=== PATIENT | female | born 1990 | race Hispanic/Latino ===

== ENCOUNTER 2018-03-13 10:08 | Emergency (ER) | payer OTHER ==
[2018-03-13 10:30] VITALS: O2SAT 100; BMI 24.2
[2018-03-13] MEDS ORDERED: Sodium Chloride 0.9% 1,000 ML IV STA (11:11)
--- NOTE | 2018-03-13 11:13 | ED PDOC ---
Arrival/HPI - General Chief Complaint: GI Problem Time Seen by Provider: 03/13/18 10:54 Historian: Patient - History of Present Illness Narrative History of Present Illness (Text): 03/13/18 11:08 27 year old female, whose past medical history includes multiple sclerosis, who presents to the ED complaining of general weakness and lightheadedness x 1 week. Patient notes associated frequent urination, nausea and vomiting x couple days. Patient states she was on a high dose steroid treatment for multiple sclerosis that she finished 1 week ago. She denies any vision issues, one sided weakness, parathesias or any neurological symptoms. She notes that she feels like she has cold like symptoms. No neck stiffness or headache. No fever. Patient states symptoms feels different than previous multiple sclerosis attacks. Patient denies any fever, chills, sob, diarrhea, cough, abdominal pain , back pain, or neck pain. LMP was 1 week prior, normal 03/13/18 14:46 Time/Duration: 1 week Symptom Onset: Gradual Symptom Course: Unchanged Activities at Onset: Light Context: Home Past Medical History - Provider Review Nursing Documentation Reviewed: Yes - Travel History Have you recently traveled outside [place] w/in the past 3 mons?: No - Patient History Narrative Patient History: MS - Infectious Disease Hx of Infectious Diseases: None - Reproductive Menopause: No - Cardiac Hx Cardiac Disorders: No - Pulmonary Hx Respiratory Disorders: No - Neurological Hx Multiple Sclerosis: Yes - HEENT Hx HEENT Disorder: No - Renal Hx Renal Disorder: No - Hematological/Oncological Hx Blood Disorders: No - Integumentary Hx Dermatological Disorder: No - Musculoskeletal/Rheumatological Hx Musculoskeletal Disorders: No - Psychiatric Hx Depression: No Hx Emotional Abuse: No Hx Physical Abuse: No Hx Substance Use: No - Anesthesia Hx Anesthesia: No - Suicidal Assessment Feels Threatened In Home Enviroment: No Family/Social History - Physician Review Nursing Documentation Reviewed: Yes Family/Social History: No Known Family HX Smoking Status: Current Some Days Smoker Hx Alcohol Use: No Hx Substance Use: No Hx Substance Use Treatment: No Allergies/Home Meds Allergies/Adverse Reactions: Allergies Sulfa (Sulfonamide Antibiotics) Allergy (Verified 03/13/18 11:10) RASH Home Medications: Home Meds Medication Instructions Recorded Confirmed Interferon Beta-1A/Albumin [Rebif 0 ml SQ 03/13/18 Titration Pack] Review of Systems - Physician Review All systems were reviewed & negative as marked: Yes - Review of Systems Constitutional: Fatigue Eyes: Normal ENT: Normal Respiratory: Normal. absent: SOB, Cough Cardiovascular: Normal. absent: Chest Pain Gastrointestinal: Nausea, Vomiting. absent: Abdominal Pain, Diarrhea Genitourinary Female: Frequency. absent: Dysuria, Vaginal Bleeding, Vaginal Discharge Musculoskeletal: Normal. absent: Back Pain, Neck Pain Skin: Normal. absent: Rash Neurological: Other (lightheaded). absent: Headache Endocrine: Normal Hemo/Lymphatic: Normal Psychiatric: Normal Physical Exam Vital Signs Reviewed: Yes Vital Signs Temp Pulse Resp BP Pulse Ox 03/13/18 12:59 97.5 F L 03/13/18 12:55 63 17 120/76 100 03/13/18 10:30 98.1 F 64 18 137/90 100 03/13/18 10:27 97.8 F 78 18 137/90 99 Temperature: Afebrile Blood Pressure: Normal Pulse: Regular Respiratory Rate: Normal Appearance: Positive for: Well-Appearing, Non-Toxic, Comfortable Pain Distress: None Mental Status: Positive for: Alert and Oriented X 3 - Systems Exam Head: Present: Atraumatic, Normocephalic Pupils: Present: PERRL Extroacular Muscles: Present: EOMI Conjunctiva: Present: Normal Mouth: Present: Moist Mucous Membranes Neck: Present: Normal Range of Motion Respiratory/Chest: Present: Clear to Auscultation, Good Air Exchange. No: Respiratory Distress, Accessory Muscle Use Cardiovascular: Present: Regular Rate and Rhythm, Normal S1, S2. No: Murmurs Abdomen: No: Tenderness, Distention, Peritoneal Signs Back: Present: Normal Inspection Upper Extremity: Present: Normal Inspection. No: Cyanosis, Edema Lower Extremity: Present: Normal Inspection. No: Edema Neurological: Present: GCS=15, CN II-XII Intact, Speech Normal, Motor Func Grossly Intact, Normal Sensory Function, Normal Cerebellar Funct, Gait Normal, Normal 2Pt Descrimination Skin: Present: Warm, Dry, Normal Color. No: Rashes Psychiatric: Present: Alert, Oriented x 3, Normal Insight, Normal Concentration Medical Decision Making ED Course and Treatment: 03/13/18 11:15 Impression: 27 year old female presents to the ED complaining of general weakness and lightheadedness x 1 week. Plan: -- Labs -- Reglan -- Sodium Chloride -- UA Progress Notes: 03/13/18 12:06 Upon reevaluation, pt is feeling better. States symptoms are unlike previous MS flares. Normal repeat neurology exam. No nausea and vomiting. Pt will be reevauated after full liter is finished. Labs reviewed, pt is dehydrated. Rest of labs unremarkable. 03/13/18 12:[address] Briones, states pt was on steroids. States symptoms most likely not MS related. Pt reevaluated. Neuro exam remains stable, pt notes improvement of symptoms. - Lab Interpretations Lab Results: 03/13/18 11:25 03/13/18 11:25 Lab Results 03/13/18 11:25: TSH 3rd Generation 1.73 03/13/18 11:25: Sodium 136, Potassium 3.6, Chloride 102, Carbon Dioxide 28, Anion Gap 11, BUN 11, Creatinine 0.5 L, Est GFR ( Amer) > 60, Est GFR ( Non-Af Amer) > 60, Random Glucose 93, Calcium 8.4, Magnesium 2.2, Total Bilirubin 0.2, AST 18, ALT 18, Alkaline Phosphatase 55, Total Protein 6.3, Albumin 3.4, Globulin 2.8, Albumin/Globulin Ratio 1.2, Lipase 72 03/13/18 11:25: Urine Color Yellow, Urine Appearance Clear, Urine pH 7.5, Ur Specific [place] 1.015, Urine Protein Negative, Urine Glucose (UA) Negative, Urine Ketones Negative, Urine Blood Negative, Urine Nitrate Negative, Urine Bilirubin Negative, Urine Urobilinogen 0.2, Ur Leukocyte Esterase Negative 03/13/18 11:25: WBC 10.4, RBC 4.26, Hgb 12.2, Hct 35.7 L, MCV 83.8, MCH 28.6, MCHC 34.2, RDW 12.3, Plt Count 230, MPV 10.3, Gran % 62.6, Lymph % (Auto) 30.5, [place] % (Auto) 5.6, Eos % (Auto) 1.2 L, Baso % (Auto) 0.1, Gran # 6.51 H, Lymph # (Auto) 3.2, [place] # (Auto) 0.6, Eos # (Auto) 0.1, Baso # (Auto) 0.01 - Medication Orders Current Medication Orders: Discontinued Medications Sodium Chloride (Sodium Chloride 0.9%) 1,000 mls @ 999 mls/hr IV .Q1H1M STA Stop: 03/13/18 12:11 Last Admin: 03/13/18 11:34 Dose: 999 mls/hr eMAR Start Stop Document 03/13/18 11:34 (Rec: 03/13/18 11:35 [id number]) Intravenous Solution Start Date 03/13/18 Start Time 11:35 End Date 03/13/18 End time 12:35 Total Infusion Time 60 Metoclopramide HCl (Reglan) 10 mg IVP STAT STA Stop: 03/13/18 11:12 Last Admin: 03/13/18 11:35 Dose: 10 mg IVP Administration Document 03/13/18 11:35 (Rec: 03/13/18 11:35 [id number]) Charges for Administration # of IVP Administrations 1 - Scribe Statement The provider has reviewed the documentation as recorded by the Scribe Eve Paredes All medical record entries made by the Scribe were at my direction and personally dictated by me. I have reviewed the chart and agree that the record accurately reflects my personal performance of the history, physical exam, medical decision making, and the department course for this patient. I have also personally directed, reviewed, and agree with the discharge instructions and disposition. Disposition/Present on Arrival - Present on Arrival Any Indicators Present on Arrival: No History of DVT/PE: No History of Uncontrolled Diabetes: No Urinary Catheter: No History of Decub. Ulcer: No History Surgical Site Infection Following: None - Disposition Have Diagnosis and Disposition been Completed?: Yes Diagnosis: Acute viral syndrome, Nonspecific syndrome suggestive of viral illness Disposition: HOME/ ROUTINE Disposition Time: 12:30 Condition: GOOD Discharge Instructions (ExitCare): Viral Syndrome (DC) Additional Instructions: ИВАН YING, thank you for letting us take care of you today. Your provider was Robi Del Rio and you were treated for BODY PAIN/NAUSEUA. The emergency medical care you received today was directed at your acute symptoms. If you were prescribed any medication, please fill it and take as directed. It may take several days for your symptoms to resolve. Return to the Emergency Department if your symptoms worsen, do not improve, or if you have any other problems. Please contact your doctor or call one of the physicians/clinics you have been referred to that are listed on the Patient Visit Information form that is included in your discharge packet. Bring any paperwork you were given at discharge with you along with any medications you are taking to your follow up visit. Our treatment cannot replace ongoing medical care by a primary care provider outside of the emergency department. Thank you for allowing the [facility] team to be part of your care today. If you had an X-Ray or CT scan: A Radiologist will review the ED reading if any change in treatment is needed we will contact you. If you had a blood, urine, or wound culture: It will take several days for the results, if any change in treatment is needed we will contact you. If you had an STI test: It will take 48 hours for the results. Please call after 1 week if you have not heard back. Prescriptions: Ondansetron ODT [Zofran ODT] 4 mg PO Q12H PRN 3 Days #4 odt PRN Reason: nausea Referrals: Tarik Briones MD [Staff Provider] - Follow up with primary Samantha Albarado MD [Primary Care Provider] - Follow up with primary Forms: [employer] ([place]), WORK NOTE
[2018-03-13 11:41] LABS: BASO # 0.01 K/mm3 (0.0-2.0); BASO % 0.1 % (0.0-3.0); EOS # 0.1 (0.0-0.7); EOS % 1.2 % (1.5-5.0); GRAN # 6.51 (1.4-6.5); GRAN % 62.6 % (50.0-68.0); HEMOGLOBIN 12.2 g/dL (12.0-16.0); LYMPH # 3.2 (1.2-3.4); LYMPH % 30.5 % (22.0-35.0); MEAN CELL VOLUME 83.8 fl (80.0-105.0); MEAN CORPUSCULAR HEMOGLOBIN 28.6 pg (25.0-35.0); MEAN CORPUSCULAR HGB CONC 34.2 g/dl (31.0-37.0); MEAN PLATELET VOLUME 10.3 fl (7.0-11.0); MONO # 0.6 (0.1-0.6); MONO % 5.6 % (1.0-6.0); PH,URINE 7.5 (4.7-8.0); RBC 4.26 10^6/uL (3.5-6.1); RED CELL DISTRIBUTION WIDTH 12.3 % (11.5-14.5); URINE BILIRUBIN NEGATIVE (NEGATIVE); URINE BLOOD NEGATIVE (NEGATIVE); URINE GLUCOSE (UA) NEGATIVE (NEGATIVE); URINE LEUKOCYTE ESTERASE NEGATIVE Leu/uL (NEGATIVE); URINE PROTEIN NEGATIVE mg/dL (<30 mg/dL); URINE UROBILINOGEN 0.2 E.U./dL (<1 E.U./dL); WHITE BLOOD COUNT 10.4 10^3/ul (4.5-11.0)
[2018-03-13 11:44] LABS: URINE APPEARANCE CLEAR (CLEAR); URINE COLOR YELLOW (YELLOW)
[2018-03-13 11:53] LABS: ALB/GLOB RATIO 1.2 (1.1-1.8); ALBUMIN 3.4 g/dL (3.0-4.8); ALT/SGPT 18 U/L (7-56); AST/SGOT 18 U/L (14-36); BLOOD UREA NITROGEN 11 mg/dL (7-21); CALCIUM 8.4 mg/dL (8.4-10.5); GFR AFRICAN-AMERICAN > 60; GFR NON-AFRICAN AMERICAN > 60; LIPASE 72 U/L (23-300)
[2018-03-13 12:55] VITALS: BP 120/76; PULSE 63; RESP 17
[2018-03-13 12:59] VITALS: TEMP 97.5
== END 2018-03-13 13:04 | disposition home or self-care (01) ==
LOC: ED 10:08
DX: B34.9 Viral infection, unspecified (principal); G35 Multiple sclerosis
CPT/HCPCS: 80053; 81003; 83690; 83735; 84443; 85025; 96361; 96374; 99284; J2765; J7030